=== PATIENT | male | born 2000 | race Two or more races ===

== ENCOUNTER 2022-02-26 10:29 | Emergency (ER) | payer BC, OTHER ==
[~2022-02-26] VITALS: Ht 175.3 cm; Wt 62.0 kg
[2022-02-26 11:26] VITALS: BP 123/71
[2022-02-26] MEDS ORDERED: ONDANSETRON ODT 4 MG TAB PO ONE (11:45)
[2022-02-26 13:46] LABS: Urine Bacteria NONE SEEN /hpf (None Seen); Urine Blood Negative /uL (Negative); Urine Specific Gravity 1.026 (1.001-1.035); Urine WBC <1 /hpf (0 - 3)
[2022-02-26] MEDS ORDERED: ONDA-144 PO (14:17)
== END 2022-02-26 14:28 | disposition home or self-care (01) ==
LOC: ER 10:29
DX: K52.9 Noninfective gastroenteritis and colitis, unspecified (principal); Z20.822 Contact with and (suspected) exposure to COVID-19
CPT/HCPCS: 36415; 81001; 87426; 87804; 99283; Q0162